=== PATIENT | female | born 1960 | race Caucasian/White ===

== ENCOUNTER 2018-05-10 16:02 | Emergency (ER) | payer MEDICAID ==
[~2018-05-10] VITALS: Ht 162.6 cm; Wt 81.6 kg
[~2018-05-10 16:02] MED LIST: ALBU18 IN; ASPI81CH49 PO; ATE50T GT; ATEN-60 PO; CHOL500021 OR; ENAL20TA70 PO; ENAL5TAB92 PO; HYDR12.56 PO; NAPR-228 PO
[2018-05-10 16:56] VITALS: BP 188/96
[2018-05-10] MEDS ORDERED: KETOROLAC TROMETH 60MG/2ML VIAL IM ONE (17:30)
== END 2018-05-10 18:25 | disposition home or self-care (01) ==
LOC: ER 16:04
DX: M54.12 Radiculopathy, cervical region (principal); G89.29 Other chronic pain; M54.2 Cervicalgia; M54.5 Low back pain; I10 Essential (primary) hypertension; Z79.899 Other long term (current) drug therapy; Z88.0 Allergy status to penicillin
CPT/HCPCS: 96372; 99283; J1885

== ENCOUNTER 2018-06-26 17:19 | Emergency (ER) | payer MEDICAID ==
[~2018-06-26] VITALS: Ht 162.6 cm; Wt 81.2 kg
[2018-06-26 18:39] LABS: Basophils # (auto) 0.1 uL; Basophils % (auto) 0.8 % (0.0-2.0); Eosinophils # (auto) 0.3 uL; Eosinophils % (auto) 2.5 % (0.0-7.0); Hematocrit 44.4 % (36.0-46.0); Hemoglobin 15.1 g/dL (12.2-16.2); Lymphocytes # (auto) 2.8 uL; Lymphocytes % (auto) 26.2 % (10.0-50.0); Mean Corpuscular Hemoglobin 30.5 pg (28.0-32.0); Mean Corpuscular Volume 89.5 fL (80.0-100.0); Monocytes # (auto) 0.7 uL; Monocytes % (auto) 6.7 % (0.0-12.0); Neutrophils # (auto) 6.7 uL; Neutrophils % (auto) 63.8 % (37.0-80.0); Nucleated Red Blood Cells % 0.1 %; Platelet Count (auto) 327 10^3/uL (140-450); Red Blood Cells 4.96 10^6/uL (4.0-5.20); White Blood Cell 10.5 10^3/uL (4.4-10.8)
[2018-06-26 18:54] LABS: Alanine Aminotransferase 22 U/L (13-56); Albumin 3.9 g/dL (3.4-5.0); Alkaline Phosphatase 125 U/L (45-117); Anion Gap 7 (5-15); Aspartate Aminotransferase 16 U/L (15-37); Bilirubin, Total 0.5 mg/dL (0.2-1.0); Blood Urea Nitrogen 17 mg/dL (7-18); Calcium 9.4 mg/dL (8.5-10.1); Carbon Dioxide 30 mmol/L (21-32); Chloride 101 mmol/L (98-107); GFR African American 74 mL/min; GFR Non-African American 61 mL/min; Glucose 165 mg/dL (74-106); Potassium 3.6 mmol/L (3.5-5.1); Sodium 138 mmol/L (136-145); Total Protein 8.8 g/dL (6.4-8.2)
[2018-06-26] MEDS ORDERED: ONDANSETRON ODT 4 MG TAB PO ONE (20:00)
[2018-06-26] MEDS ORDERED: HYDROcodone-ACET 10/325MG TAB PO ONE (21:15)
[2018-06-26 22:08] VITALS: BP 155/93
== END 2018-06-26 22:30 | disposition home or self-care (01) ==
LOC: ER 17:23
DX: M45.9 Ankylosing spondylitis of unspecified sites in spine (principal); M19.90 Unspecified osteoarthritis, unspecified site; M47.896 Other spondylosis, lumbar region; I10 Essential (primary) hypertension; Z88.0 Allergy status to penicillin; Z79.82 Long term (current) use of aspirin; Z79.899 Other long term (current) drug therapy
CPT/HCPCS: 36415; 71045; 72040; 72070; 72125; 72131; 80053; 84484; 85025; 86850; 86900; 86901; 93005; 99285; Q0162

== ENCOUNTER 2018-07-22 20:21 | Emergency (ER) | payer MEDICAID ==
[~2018-07-22] VITALS: Ht 162.6 cm; Wt 79.8 kg
[~2018-07-22 20:21] MED LIST changes: +ENAL5TAB PO; -ENAL5TAB92 PO
[2018-07-23 01:13] VITALS: BP 156/90
[2018-07-23] MEDS ORDERED: methylPREDNISolone SOD SUCC 125 MG/2 ML VL IM ONE (01:30)
[2018-07-23] MEDS ORDERED: KETOROLAC TROMETH 60MG/2ML VIAL IM ONE (01:30)
[2018-07-23] MEDS ORDERED: CLINDAMYCIN 600 MG/4 ML VL IM ONE (03:45)
[2018-07-23] MEDS ORDERED: HYDROcodone-ACET 10/325MG TAB PO ONE (04:15)
[2018-07-23 05:02] LABS: Urine Bacteria FEW /hpf (None Seen); Urine Blood Negative /uL (Negative); Urine Mucus FEW (None Seen); Urine Specific Gravity 1.022 (1.001-1.035); Urine WBC 47 /hpf (0 - 5)
== END 2018-07-23 04:59 | disposition home or self-care (01) ==
LOC: EDBD 20:21 → ER 20:26
DX: N39.0 Urinary tract infection, site not specified (principal); D17.5 Benign lipomatous neoplasm of intra-abdominal organs; M62.838 Other muscle spasm; I10 Essential (primary) hypertension; Z88.0 Allergy status to penicillin
CPT/HCPCS: 72100; 74176; 81001; 93005; 96372; 99285; J1885; J2930

== ENCOUNTER 2021-12-14 19:14 | Emergency (ER) | payer MEDICAID ==
[~2021-12-14] VITALS: Ht 162.6 cm; Wt 85.9 kg
[~2021-12-14 19:14] MED LIST changes: -ENAL20TA70 PO; +ENAL20TA8 PO; -ENAL5TAB PO; +ENAL5TAB10 PO
[2021-12-14 20:00] LABS: Urine Bacteria FEW /hpf (None Seen); Urine Blood Negative /uL (Negative); Urine WBC 13 /hpf (0 - 5)
[2021-12-14] MEDS ORDERED: CIPR-173 PO (23:34)
[2021-12-15 01:10] VITALS: BP 165/82
[2021-12-15] MEDS ORDERED: CIPROFLOXACIN HCL 500 MG TAB PO ONE (01:15)
== END 2021-12-15 01:15 | disposition home or self-care (01) ==
LOC: ER 19:15
DX: N39.0 Urinary tract infection, site not specified (principal); M19.90 Unspecified osteoarthritis, unspecified site; I10 Essential (primary) hypertension; Z88.0 Allergy status to penicillin
CPT/HCPCS: 81001; 87086

== ENCOUNTER 2023-10-10 15:25 | Emergency (ER) | payer MEDICAID ==
[~2023-10-10] VITALS: Ht 162.6 cm; Wt 80.0 kg
[~2023-10-10 15:25] MED LIST changes: +ENAL1TAB48 PO; -ENAL20TA8 PO; -ENAL5TAB10 PO; +ENAL5TAB22 PO; -HYDR12.56 PO; +HYDR12.59 PO
[2023-10-10 16:24] LABS: Basophils # (auto) 0.1 10 ^3/uL (0-0.2); Eosinophils # (auto) 0.2 10 ^3/uL (0-0.8); Eosinophils % (auto) 2.1 % (0.0-7.0); Hematocrit 44.6 % (36.0-46.0); Lymphocytes # (auto) 3.5 10 ^3/uL (0.4-5.4); Lymphocytes % (auto) 33.2 % (10.0-50.0); Mean Corpuscular Hemoglobin 30.9 pg (28.0-32.0); Mean Corpuscular Hgb Conc. 33.7 g/dL (32.0-36.0); Mean Corpuscular Volume 91.7 fL (80.0-100.0); Monocytes # (auto) 0.7 10 ^3/uL (0-1.3); Monocytes % (auto) 7.1 % (0.0-12.0); Neutrophils % (auto) 56.6 % (37.0-80.0); Nucleated Red Blood Cells % 0.1 %; Red Blood Cells 4.87 10^6/uL (4.0-5.20); Red Cell Distribution Width 13.7 % (11.8-14.3); White Blood Cell 10.5 10^3/uL (4.4-10.8)
[2023-10-10 16:36] LABS: Alanine Aminotransferase 61 U/L (7-40); Albumin 4.6 g/dL (3.2-4.8); Alkaline Phosphatase 148 U/L (46-116); Anion Gap 7 (5-15); Aspartate Aminotransferase 58 U/L (13-40); BUN/Creatinine Ratio 12.9 (10.0-20.0); Blood Urea Nitrogen 12 mg/dL (9-23); Calcium 9.4 mg/dL (8.7-10.4); Carbon Dioxide 29 mmol/L (20-30); Chloride 105 mmol/L (98-107); Potassium 3.9 mmol/L (3.5-5.1); Sodium 141 mmol/L (136-145)
[2023-10-10 16:37] LABS: Bilirubin, Total 0.8 mg/dL (0.2-1.0); INR 0.98 (0.9-1.15); Partial Thromboplastin Time 32.5 SEC (24.5-34.5); Prothrombin Time 10.3 sec (9.3-11.8); Total Protein 7.6 g/dL (5.7-8.2)
[2023-10-10 16:45] LABS: Glucose 96 mg/dL (74-106)
[2023-10-10] MEDS ORDERED: amLODIPine BESYLATE 5 MG TAB PO ONE (20:15)
[2023-10-10 20:18] LABS: Base Excess -3.3 mmol/L (-2.0-2.0)
[2023-10-10 21:50] VITALS: BP 193/95; PULSE 88; RESP 18; TEMP 98; O2SAT 97
== END 2023-10-10 22:19 | disposition home or self-care (01) ==
LOC: EDBD 15:25 → ER 15:25
DX: I10 Essential (primary) hypertension (principal); R51.9 Headache, unspecified; F41.9 Anxiety disorder, unspecified; M19.90 Unspecified osteoarthritis, unspecified site; Z91.199 Patient's noncompliance with other medical treatment and regimen due to unspecified reason; Z88.0 Allergy status to penicillin; Z79.899 Other long term (current) drug therapy; Z86.2 Personal history of diseases of the blood and blood-forming organs and certain disorders involving the immune mechanism
CPT/HCPCS: 36415; 36600; 70450; 80053; 82805; 84484; 85025; 85610; 85730; 93005